=== PATIENT | female | born 1950 | race Caucasian/White ===

== ENCOUNTER 2017-08-19 07:00 | Inpatient (IN) | payer OTHER ==
[~2017-08-19] VITALS: Ht 152.4 cm; Wt 68.0 kg
[2017-08-19] MEDS ORDERED: ZOLOFT100 MG PO (09:07)
[2017-08-19] MEDS ORDERED: PRILOSEC OTC20 MG PO (09:08)
[2017-08-19] MEDS ORDERED: GLUCOTROL10 MG PO (09:08)
[2017-08-19] MEDS ORDERED: ZOCOR40 MG PO (09:08)
[2017-08-19] MEDS ORDERED: GABAPENTIN300 MG PO (09:09)
[2017-08-19] MEDS ORDERED: GLUCOPHAGE XR750 MG PO (09:09)
[2017-08-27] MEDS ORDERED: AMOX-CLAV 875-1 EACH PO (14:47)
[2017-08-27] MEDS ORDERED: DOCUSATE SODIU100 MG PO (14:47)
[2017-08-27] MEDS ORDERED: PERCOCET 5-3251 EACH PO (14:47)
[2017-08-27] MEDS ORDERED: CLONAZEPAM1 MG PO (14:47)
[2017-08-27] MEDS ORDERED: GABAPENTIN800 MG PO (14:47)
== END 2017-08-28 14:22 | disposition home or self-care (01) | DRG 455 ==
LOC: O/R 08-27 05:10 → PED 08-27 05:10 → SURH 08-27 07:00 → PED 08-27 17:48
PROVIDERS: Orthopaedic Surgery Orthopaedic Surgery of the Spine
PROC: 0SG0071 Fusion of Lumbar Vertebral Joint with Autologous Tissue Substitute, Posterior Approach, Posterior Column, Open Approach (ICD-10-PCS; 2017-08-27)
PROC: 0ST20ZZ Resection of Lumbar Vertebral Disc, Open Approach (ICD-10-PCS; 2017-08-27)
PROC: 0SG00AJ Fusion of Lumbar Vertebral Joint with Interbody Fusion Device, Posterior Approach, Anterior Column, Open Approach (ICD-10-PCS; 2017-08-27)
PROC: 07DS3ZZ Extraction of Vertebral Bone Marrow, Percutaneous Approach (ICD-10-PCS; 2017-08-27)
PROC: 0SG00A0 Fusion of Lumbar Vertebral Joint with Interbody Fusion Device, Anterior Approach, Anterior Column, Open Approach (ICD-10-PCS; principal; 2017-08-27 07:00)
DX: M48.061 Spinal stenosis, lumbar region without neurogenic claudication (principal); M51.16 Intervertebral disc disorders with radiculopathy, lumbar region; M43.16 Spondylolisthesis, lumbar region; E11.9 Type 2 diabetes mellitus without complications; I10 Essential (primary) hypertension; K21.9 Gastro-esophageal reflux disease without esophagitis; F32.89 Other specified depressive episodes